=== PATIENT | female | born 1975 | race African-American/Black ===

== ENCOUNTER 2019-04-23 09:37 | Emergency (ER) | payer MEDICAID ==
[~2019-04-23] VITALS: Ht 160 cm; Wt 85.0 kg
[2019-04-23] MEDS ORDERED: ACETAMINOPHEN 325MG TABLET PO ONE (11:15)
[2019-04-23 12:21] LABS: BASOPHILS % 0.8 % (0.0-2.0); EOSINOPHILS % 2.9 % (0.0-5.0); HEMATOCRIT. 25.6 % (36.0-48.0); HEMOGLOBIN. 7.8 g/dL (12.0-16.0); LYMPHOCYTES % 22.2 % (20.0-50.0); MEAN CORPUSCULAR HEMOGLOBIN 19.7 pg (28.0-32.0); MEAN PLATELET VOLUME 8.9 fl (7.4-10.4); MONOCYTES % 8.3 % (2.0-8.0); NEUTROPHILS % 65.8 % (40.0-76.0); PLATELET 315 x1000/uL (130-400); RED BLOOD CELL COUNT 3.95 mill/uL (4.2-5.4); RED CELL DISTRIBUTION WIDTH 20.3 % (11.6-14.6)
[2019-04-23 12:22] LABS: CHLORIDE 108 mEq/L (98-107)
[2019-04-23 12:36] LABS: D-DIMER 0.31 mg/L FEU (<0.50); PARTIAL THROMBOPLASTIN TIME 25.4 sec (23.4-31.0); PROTHROMBIN TIME 9.8 sec (9.6-11.0)
[2019-04-23 12:42] LABS: HCG SCREEN NEGATIVE
[2019-04-23 13:20] LABS: PLATELET ESTIMATE NORMAL
[2019-04-23 17:39] VITALS: BP 131/79
== END 2019-04-23 17:55 | disposition home or self-care (01) ==
LOC: ER 09:37
DX: R07.89 Other chest pain (principal); D50.9 Iron deficiency anemia, unspecified; Z98.890 Other specified postprocedural states
CPT/HCPCS: 36415; 71045; 81025; 83880; 84484; 84703; 85379; 93005; 99284